=== PATIENT | female | born 1990 | race Two or more races ===

== ENCOUNTER 2019-01-21 15:37 | Emergency (ER) | payer OTHER ==
[~2019-01-21] VITALS: Ht 152.4 cm; Wt 49.9 kg
[~2019-01-21 15:37] MED LIST: CEFADROXIL500 MG PO; KETO10TA2 PO
[2019-01-21] MEDS ORDERED: SEPTRA (15:50)
== END 2019-01-21 20:22 | disposition home or self-care (01) ==
LOC: ER 15:37
DX: N39.0 Urinary tract infection, site not specified (principal); R10.31 Right lower quadrant pain

== ENCOUNTER 2019-11-14 10:40 | Outpatient (CLI) | payer OTHER ==
[~2019-11-14 10:40] MED LIST changes: +SEPTRA
== END 2019-11-14 10:58 | disposition home or self-care (01) ==
LOC: RX STUDY 10:40
PROVIDERS: ATTEND Specialist
DX: N88.2 Stricture and stenosis of cervix uteri (principal)

== ENCOUNTER 2023-04-18 11:54 | Outpatient (CLI) | payer OTHER | END 2023-04-18 12:30 | disposition home or self-care (01) | LOC: NST 11:54 | PROVIDERS: ATTEND Obstetrics & Gynecology | DX: Z34.82 Encounter for supervision of other normal pregnancy, second trimester (principal) ==

== ENCOUNTER 2023-06-27 16:12 | Outpatient (CLI) | payer OTHER | END 2023-06-27 17:24 | disposition home or self-care (01) | LOC: NST 16:12 | PROVIDERS: ATTEND Obstetrics & Gynecology Maternal & Fetal Medicine | DX: Z34.83 Encounter for supervision of other normal pregnancy, third trimester (principal) ==

== ENCOUNTER 2023-07-26 14:31 | Inpatient (IN) | payer OTHER ==
[~2023-07-26] VITALS: Ht 152.4 cm; Wt 3.2 kg
[2023-07-26] MEDS ORDERED: PRENATAL TABLE1 EAC1 PO (15:41)
[2023-07-26] MEDS ORDERED: RINGERS SOLUTION,LACTATED 1,000 ML IV SCH (16:00)
[2023-07-26 16:03] LABS: HEMOGLOBIN 10.9 g/dL (12.0-15.00); MEAN CELL VOLUME 88.3 fL (80.00-100.00); MEAN CORPUSCULAR HEMOGLOBIN 30.1 pg (27.00-32.0); PLATELET COUNT 224 K/uL (150-450); RED BLOOD COUNT 3.63 M/uL (4.00-6.00)
[2023-07-26 16:04] LABS: RED CELL DISTRIBUTION WIDTH 21.5 % (11.5-14.5)
[2023-07-26] MEDS ORDERED: MISOPROSTOL 25 MCG TABLET VAG ONE (16:15)
[2023-07-26 16:24] LABS: INR 0.95; PARTIAL THROMBOPLASTIN TIME 32.8 SECONDS (22.0-34.0)
[2023-07-26 16:33] LABS: ALBUMIN 2.3 gm/dL (3.4-5.0); BILIRUBIN TOTAL 1.2 mg/dL (0.3-1.2); CREATININE SERUM 0.58 mg/dL (0.55-1.02); GLOBULINA 3.5 G/DL (2.4-3.5); POTASSIUM 3.82 mEq/L (3.5-5.1); TOTAL PROTEIN 5.8 gm/dL (6.4-8.2)
[2023-07-26] MEDS ORDERED: MORPHINE SULFATE 4 MG/ML CARTRIDGE IV PRN (19:45)
[2023-07-27] MEDS ORDERED: OXYTOCIN 500 ML IV ONE (07:30)
[2023-07-27] MEDS ORDERED: MORPHINE SULFATE 2 MG/ML CARTRIDGE IV ONE (12:00)
[2023-07-27] MEDS ORDERED: CEFAZOLIN SODIUM 1,000 MG VIAL IV SCH (15:30)
[2023-07-27] MEDS ORDERED: GABAPENTIN 300 MG CAPSULE PO SCH (17:00)
[2023-07-27] MEDS ORDERED: MORPHINE SULFATE 4 MG/ML CARTRIDGE IV PRN (17:00)
[2023-07-27] MEDS ORDERED: ERYTHROMYCIN BASE 3.5 GM OINT...G. OP ONE (17:06)
[2023-07-27] MEDS ORDERED: OXYTOCIN 10 UNITS/ML VIAL ONE (17:06)
[2023-07-27] MEDS ORDERED: OXYTOCIN 1,000 ML IV ONE (17:15)
[2023-07-27] MEDS ORDERED: ONDANSETRON HCL 2 MG/ML VIAL IV PRN (17:15)
[2023-07-27] MEDS ORDERED: RINGERS SOLUTION,LACTATED 1,000 ML IV SCH (17:15)
[2023-07-27] MEDS ORDERED: OXYTOCIN 10 UNITS/ML VIAL IV ONE ×2 (17:30→17:45)
[2023-07-27] MEDS ORDERED: ERYTHROMYCIN BASE 1 GM TUBE OP ONE (17:30)
[2023-07-27] MEDS ORDERED: KETOROLAC TROMETHAMINE 30 MG VIAL IV SCH (18:00)
[2023-07-27] MEDS ORDERED: KETOROLAC TROMETHAMINE 30 MG VIAL ONE (19:23)
[2023-07-28 07:55] LABS: HEMATOCRIT 26.6 % (36.0-45.00); HEMOGLOBIN 9.3 g/dL (12.0-15.00); MEAN CELL VOLUME 90.5 fL (80.00-100.00); MEAN CORPUSCULAR HEMOGLOBIN 31.6 pg (27.00-32.0); MEAN CORPUSCULAR HGB CONC 34.9 g/dl (32.0-36.0); PLATELET COUNT 178 K/uL (150-450); RED BLOOD COUNT 2.94 M/uL (4.00-6.00); RED CELL DISTRIBUTION WIDTH 21.1 % (11.5-14.5)
[2023-07-28] MEDS ORDERED: KETOROLAC TROMETHAMINE 10 MG TABLET PO SCH (08:00)
[2023-07-28] MEDS ORDERED: OxyCODONE HCL 5 MG TABLET (ROXICODONE) PO PRN (08:00)
[2023-07-28] MEDS ORDERED: FF) RHO(D) IMMUNE GLOBULIN (POM) IM ONE (15:45)
== END 2023-07-29 16:35 | disposition home or self-care (01) | DRG 788 ==
LOC: LDR 14:31 → O/R 14:31 → OB/GYN 07-27 19:32
PROVIDERS: Obstetrics & Gynecology; ADMIT Obstetrics & Gynecology Maternal & Fetal Medicine; ATTEND Obstetrics & Gynecology Maternal & Fetal Medicine
PROC: 3E0P7VZ Introduction of Hormone into Female Reproductive, Via Natural or Artificial Opening (ICD-10-PCS; 2023-07-26)
PROC: 4A1HXCZ Monitoring of Products of Conception, Cardiac Rate, External Approach (ICD-10-PCS; 2023-07-26)
PROC: 3E033VJ Introduction of Other Hormone into Peripheral Vein, Percutaneous Approach (ICD-10-PCS; 2023-07-27)
PROC: 10D00Z1 Extraction of Products of Conception, Low, Open Approach (ICD-10-PCS; principal; 2023-07-27 17:00)
DX: O61.0 Failed medical induction of labor (principal); O13.4 Gestational [pregnancy-induced] hypertension without significant proteinuria, complicating childbirth; O62.1 Secondary uterine inertia; Z3A.38 38 weeks gestation of pregnancy; Z37.0 Single live birth; Z20.822 Contact with and (suspected) exposure to COVID-19

== ENCOUNTER 2024-10-10 10:09 | Inpatient (IN) | payer OTHER ==
[~2024-10-10] VITALS: Ht 152.4 cm; Wt 2.7 kg
[2024-10-10 10:07] LABS: URINE APPEARANCE Clear; URINE BILIRRUBIN Negative (NEGATIVE); URINE BLOOD Small; URINE COLOR Yellow; URINE GLUCOSE Negative (NEGATIVE); URINE KETONE Negative (NEGATIVE); URINE LEUKOCYTE Moderate; URINE NITRATE Negative; URINE PROTEIN Negative (NEGATIVE)
[2024-10-10 10:08] LABS: URINE EPITHELIAL CELLS 24.2 uL (0.0-38.8); URINE RBC 37.7 uL (0.0-20.8); URINE WBC 47.3 uL (0.0-23.2)
[~2024-10-10 10:09] MED LIST changes: +PRENATAL TABLE1 EAC1 PO
[2024-10-10 10:10] LABS: BASO % 0.6 % (0.1-1.2); EOS # 0.15 (0.04-0.54); EOS % 1.9 % (0.7-7.0); HEMATOCRIT 31.7 % (34.1-44.9); LYMPH # 1.42 (1.18-3.74); LYMPH % 17.6 % (19.3-53.1); MEAN CORPUSCULAR HEMOGLOBIN 24.8 pg (25.6-32.2); MONO # 0.58 (0.24-0.82); MONO % 7.2 % (4.7-12.5); NEUT # 5.75 (1.56-6.13); NEUT % 71.5 % (34.0-71.1); PLATELET COUNT 301 K/uL (163-369); RED BLOOD COUNT 4.04 M/uL (3.93-5.22)
[2024-10-10 10:23] LABS: INR 0.95; PARTIAL THROMBOPLASTIN TIME 29.5 SECONDS (22.0-34.0); PROTHROMBIN TIME 10.4 SECONDS (9.0-11.5)
[2024-10-10 10:37] LABS: ALBUMIN 2.6 gm/dL (3.4-5.0); BILIRUBIN TOTAL 0.99 mg/dL (0.3-1.2); CALCIUM 8.5 mg/dL (8.5-10.1); CREATININE SERUM 0.38 mg/dL (0.55-1.02); GFR 192.72; POTASSIUM 3.88 mEq/L (3.5-5.1); TOTAL PROTEIN 6.6 gm/dL (6.4-8.2)
[2024-10-15 08:06] VITALS: BP 100/68
[2024-10-15] MEDS ORDERED: RINGERS SOLUTION,LACTATED 1,000 ML IV SCH (09:30)
[2024-10-15] MEDS ORDERED: CEFAZOLIN SODIUM 1,000 MG VIAL IV SCH (09:30)
[2024-10-15] MEDS ORDERED: CITRIC ACID/SODIUM CITRATE 30 ML BLIST.PACK PO SCH (09:45)
[2024-10-15 12:00] VITALS: BP 98/64; O2SAT 98
[2024-10-15] MEDS ORDERED: ERYTHROMYCIN BASE OPHT 1GM EACH TUBE OP ONE (12:20)
[2024-10-15] MEDS ORDERED: CEFAZOLIN SODIUM 1,000 MG VIAL ONE (12:26)
[2024-10-15] MEDS ORDERED: OXYTOCIN 10 UNITS/ML VIAL ONE (12:26)
[2024-10-15] MEDS ORDERED: MORPHINE SULFATE 4 MG/ML CARTRIDGE IV SCH (13:47)
[2024-10-15] MEDS ORDERED: KETOROLAC TROMETHAMINE 30 MG VIAL IV SCH (13:48)
[2024-10-15] MEDS ORDERED: OXYTOCIN 1,000 ML IV ONE (14:00)
[2024-10-15] MEDS ORDERED: KETOROLAC TROMETHAMINE 30 MG VIAL ONE ×2 (15:03→18:03)
[2024-10-15] MEDS ORDERED: KETOROLAC TROMETHAMINE 30 MG VIAL IV ONE (15:05)
[2024-10-15] MEDS ORDERED: MORPHINE SULFATE 4 MG/ML VIAL IV ONE (16:40)
[2024-10-15 18:26] VITALS: BP 103/64
[2024-10-16 01:58] VITALS: BP 101/65; O2SAT 96
[2024-10-16] MEDS ORDERED: OxyCODONE HCL 5 MG TABLET (ROXICODONE) PO STA (04:11)
[2024-10-16] MEDS ORDERED: SIMETHICONE 125 MG CAPSULE PO STA (04:12)
[2024-10-16] MEDS ORDERED: ACETAMINOPHEN 500 MG GEL..CAP PO SCH (06:00)
[2024-10-16 08:00] VITALS: BP 109/76
[2024-10-16 08:03] LABS: BASO % 0.6 % (0.1-1.2); EOS # 0.15 (0.04-0.54); EOS % 1.7 % (0.7-7.0); HEMATOCRIT 27.4 % (34.1-44.9); LYMPH # 1.05 (1.18-3.74); LYMPH % 11.8 % (19.3-53.1); MONO # 0.74 (0.24-0.82); MONO % 8.3 % (4.7-12.5); NEUT # 6.84 (1.56-6.13); NEUT % 76.9 % (34.0-71.1); PLATELET COUNT 253 K/uL (163-369); RED BLOOD COUNT 3.48 M/uL (3.93-5.22); RED CELL DISTRIBUTION WIDTH 15.9 % (11.6-14.4)
[2024-10-16 08:08] LABS: HEMOGLOBIN 8.7 g/dL (11.2-15.7)
[2024-10-16] MEDS ORDERED: GABAPENTIN 300 MG CAPSULE PO SCH ×2 (09:00)
[2024-10-16] MEDS ORDERED: SIMETHICONE 125 MG CAPSULE PO SCH (09:00)
[2024-10-16] MEDS ORDERED: PNV,CALCIUM 72/IRON/FOLIC ACID 1 TAB TABLET PO SCH (09:00)
[2024-10-16] MEDS ORDERED: DOCUSATE SODIUM 100MG CAP PO SCH (09:00)
[2024-10-16] MEDS ORDERED: IBUprofen 600 MG TABLET PO SCH (12:00)
[2024-10-16 16:08] VITALS: BP 95/60
[2024-10-17 01:36] VITALS: BP 100/58; O2SAT 96
[2024-10-17] MEDS ORDERED: OxyCODONE HCL 5 MG TABLET (ROXICODONE) PO PRN (06:00)
[2024-10-17] MEDS ORDERED: FF) RHO(D) IMMUNE GLOBULIN (POM) IM NR (08:15)
[2024-10-17 08:29] VITALS: BP 118/79
== END 2024-10-17 13:14 | disposition home or self-care (01) | DRG 788 ==
LOC: LDR 10-15 08:26 → OB/GYN 10-15 08:26
PROVIDERS: Obstetrics & Gynecology Gynecology; ADMIT Obstetrics & Gynecology Maternal & Fetal Medicine; ATTEND Obstetrics & Gynecology Maternal & Fetal Medicine
PROC: 4A1HXCZ Monitoring of Products of Conception, Cardiac Rate, External Approach (ICD-10-PCS; 2024-10-15)
PROC: 10D00Z1 Extraction of Products of Conception, Low, Open Approach (ICD-10-PCS; principal; 2024-10-15 12:00)
DX: O34.211 Maternal care for low transverse scar from previous cesarean delivery (principal); Z3A.38 38 weeks gestation of pregnancy; Z37.0 Single live birth